=== PATIENT | female | born 1955 | race Caucasian/White ===

== ENCOUNTER 2020-07-26 08:22 | Observation (INO) | payer BC ==
--- NOTE | 2020-07-26 08:53 | ED ---
General Adult HPI - General Chief complaint: Dizziness Stated complaint: dizziness Time Seen by Provider: 07/26/20 08:38 Source: patient, EMS, RN notes reviewed, old records reviewed Mode of arrival: EMS Limitations: no limitations - History of Present Illness Initial comments: 64-year-old female presenting for evaluation of dizziness and blurred vision. Symptoms began approximately one hour prior to arrival. She states she had a similar episode to this one month ago which did resolve without specific treatment. This was while the patient was driving. Today she felt dizzy, noted the vision changes and had bilateral upper and lower lip numbness. There was no extremity numbness or weakness. No previous history of CVA or vision problems. She has hypothyroidism and is a current smoker, no other medical problems. - Related Data Home Medications Medication Instructions Recorded Confirmed Citalopram Hydrobromide [CeleXA] 40 mg PO DAILY 07/26/20 07/26/20 Levothyroxine Sodium 100 mcg PO DAILY 07/26/20 07/26/20 Allergies Allergy/AdvReac Type Severity Reaction Status Date / Time No Known Allergies Allergy Verified 07/26/20 09:37 Review of Systems ROS Statement: Those systems with pertinent positive or pertinent negative responses have been documented in the HPI. ROS Other: All systems not noted in ROS Statement are negative. Past Medical History Past Medical History: No Reported History History of Any Multi-Drug Resistant Organisms: None Reported Past Surgical History: Ablation Past Psychological History: Depression Smoking Status: Current every day smoker Past Alcohol Use History: Daily Past Drug Use History: None Reported General Exam Limitations: no limitations General appearance: alert, in no apparent distress Head exam: Present: atraumatic, normocephalic Eye exam: Present: other (Left eye has a medial nerve palsy) ENT exam: Present: normal exam Neck exam: Present: normal inspection. Absent: tenderness, meningismus Respiratory exam: Present: normal lung sounds bilaterally. Absent: respiratory distress, wheezes Cardiovascular Exam: Present: regular rate, normal rhythm GI/Abdominal exam: Present: soft. Absent: distended, tenderness Extremities exam: Present: normal inspection, normal capillary refill. Absent: calf tenderness Neurological exam: Present: alert, oriented X3, motor sensory deficit (Radial nerve palsy, NIH of 0). Absent: CN II-XII intact Psychiatric exam: Present: normal affect, normal mood Skin exam: Present: warm, dry, intact. Absent: cyanosis, diaphoretic Course Vital Signs 07/26/20 08:31 Temperature 97.9 F Pulse Rate 71 Respiratory 18 Rate Blood Pressure 146/94 O2 Sat by Pulse 96 Oximetry - Reevaluation(s) Reevaluation #1: 07/26/20 09:50 Symptoms improved, normal extraocular movements. Suspect TIA EKG Findings - EKG Comments: EKG Findings:: EKG: Normal sinus rhythm, rate of 69, DE interval 180, QRS duration 84, QTC 475, no ST segment elevation. Medical Decision Making - Medical Decision Making 64-year-old female with sudden onset dizziness and double vision. Initially the patient has a medial rectus palsy of the left eye with double vision on rightward gaze. She has no other focal findings. She has an NIH of 0, no ataxia. Normal strength throughout. Head CT negative for intracranial hemorrhage but does show chronic ischemic changes well as a CT angiography showing diminished flow in the posterior communicating arteries bilaterally. Her symptoms improve and resolve while in the emergency department. This is suggestive of a TIA. She's given aspirin and IV fluids. Her vital signs are stable. She will be admitted to her primary care physician Dr. Russo with destiney aj on consult. - Lab Data Result diagrams: 07/26/20 08:53 07/26/20 08:53 Lab Results 07/26/20 07/26/20 07/26/20 Range/Units 08:53 08:53 08:53 WBC 8.4 (3.8-10.6) k/uL RBC 4.61 (3.80-5.40) m/uL Hgb 16.7 H (11.4-16.0) gm/dL Hct 48.8 H (34.0-46.0) % MCV 105.8 H (80.0-100.0) fL MCH 36.3 H (25.0-35.0) pg MCHC 34.3 (31.0-37.0) g/dL RDW 13.0 (11.5-15.5) % Plt Count 237 (150-450) k/uL Neutrophils % 44 % Lymphocytes % 43 % Monocytes % 7 % Eosinophils % 3 % Basophils % 1 % Neutrophils # 3.7 (1.3-7.7) k/uL Lymphocytes # 3.6 (1.0-4.8) k/uL Monocytes # 0.6 (0-1.0) k/uL Eosinophils # 0.2 (0-0.7) k/uL Basophils # 0.1 (0-0.2) k/uL Macrocytosis Slight PT 10.2 (9.0-12.0) sec INR 1.0 (<1.2) APTT 23.2 (22.0-30.0) sec Sodium 137 (137-145) mmol/L Potassium 3.9 (3.5-5.1) mmol/L Chloride 105 (98-107) mmol/L Carbon Dioxide 25 (22-30) mmol/L Anion Gap 7 mmol/L BUN 10 (7-17) mg/dL Creatinine 0.97 (0.52-1.04) mg/dL Est GFR (CKD-EPI)AfAm 73 (>60 ml/min/1.73 sqM) Est GFR (CKD-EPI)NonAf 63 (>60 ml/min/1.73 sqM) Glucose 118 H (74-99) mg/dL Calcium 9.5 (8.4-10.2) mg/dL Total Bilirubin 0.7 (0.2-1.3) mg/dL AST 28 (14-36) U/L ALT 24 (4-34) U/L Alkaline Phosphatase 63 (38-126) U/L Troponin I (0.000-0.034) ng/mL Total Protein 7.4 (6.3-8.2) g/dL Albumin 4.3 (3.5-5.0) g/dL 07/26/20 Range/Units 08:53 WBC (3.8-10.6) k/uL RBC (3.80-5.40) m/uL Hgb (11.4-16.0) gm/dL Hct (34.0-46.0) % MCV (80.0-100.0) fL MCH (25.0-35.0) pg MCHC (31.0-37.0) g/dL RDW (11.5-15.5) % Plt Count (150-450) k/uL Neutrophils % % Lymphocytes % % Monocytes % % Eosinophils % % Basophils % % Neutrophils # (1.3-7.7) k/uL Lymphocytes # (1.0-4.8) k/uL Monocytes # (0-1.0) k/uL Eosinophils # (0-0.7) k/uL Basophils # (0-0.2) k/uL Macrocytosis PT (9.0-12.0) sec INR (<1.2) APTT (22.0-30.0) sec Sodium (137-145) mmol/L Potassium (3.5-5.1) mmol/L Chloride (98-107) mmol/L Carbon Dioxide (22-30) mmol/L Anion Gap mmol/L BUN (7-17) mg/dL Creatinine (0.52-1.04) mg/dL Est GFR (CKD-EPI)AfAm (>60 ml/min/1.73 sqM) Est GFR (CKD-EPI)NonAf (>60 ml/min/1.73 sqM) Glucose (74-99) mg/dL Calcium (8.4-10.2) mg/dL Total Bilirubin (0.2-1.3) mg/dL AST (14-36) U/L ALT (4-34) U/L Alkaline Phosphatase (38-126) U/L Troponin I <0.012 (0.000-0.034) ng/mL Total Protein (6.3-8.2) g/dL Albumin (3.5-5.0) g/dL Disposition Clinical Impression: Transient cerebral ischemia Disposition: ADMITTED IP TO THIS HOSP Condition: Stable Is patient prescribed a controlled substance at d/c from ED?: No Referrals: Gonsalo Russo MD [Primary Care Provider] - 1-2 days Decision to Admit Reason: Admit from EC Decision Date: 07/26/20 Decision Time: 10:03
[2020-07-26 09:01] LABS: Basophils # (A) 0.1 k/uL (0-0.2); Basophils % (A) 1 %; Eosinophils # (A) 0.2 k/uL (0-0.7); Eosinophils % (A) 3 %; HCT 48.8 % (34.0-46.0); HGB 16.7 gm/dL (11.4-16.0); Lymphocytes # (A) 3.6 k/uL (1.0-4.8); Lymphocytes % (A) 43 %; MCH 36.3 pg (25.0-35.0); MCHC 34.3 g/dL (31.0-37.0); MCV 105.8 fL (80.0-100.0); Macrocytosis Slight; Mean Platelet Volume 7.4; Monocytes # (A) 0.6 k/uL (0-1.0); Monocytes % (A) 7 %; Neutrophils # (A) 3.7 k/uL (1.3-7.7); Neutrophils % (A) 44 %; Platelet Count 237 k/uL (150-450); RBC 4.61 m/uL (3.80-5.40); WBC 8.4 k/uL (3.8-10.6)
[2020-07-26 09:10] LABS: Partial Thromboplastin Time 23.2 sec (22.0-30.0); Prothrombin Time 10.2 sec (9.0-12.0)
[2020-07-26 09:13] LABS: Albumin 4.3 g/dL (3.5-5.0); Calcium 9.5 mg/dL (8.4-10.2); Potassium 3.9 mmol/L (3.5-5.1); Total Bilirubin 0.7 mg/dL (0.2-1.3); Total Protein 7.4 g/dL (6.3-8.2)
--- NOTE | 2020-07-26 09:35 | XR ---
EXAMINATION TYPE: XR chest 2V DATE OF EXAM: 07/26/2020 COMPARISON: None HISTORY: 65-year-old female confusion, dizziness, altered mental status TECHNIQUE: AP and lateral views FINDINGS: Heart normal size. Mild elongation/ectasia of the thoracic aorta. Mild interstitial prominence has a chronic appearance. No consolidation or pleural effusion. Suspected tiny calcified granuloma at the p eripheral right base. IMPRESSION: Chronic appearing changes. No acute process seen.
--- NOTE | 2020-07-26 09:42 | CT ---
EXAMINATION TYPE: CT brain wo con DATE OF EXAM: 07/26/2020 HISTORY: dizziness, numb lips CT DLP: 1068 mGycm. Automated Exposure Control for Dose Reduction was Utilized. TECHNIQUE: CT scan of the head is performed without contrast. COMPARISON: None FINDINGS: There is no acute intracranial hemorrhage, midline shift, or mass effect identified. Mild volume loss . There or patchy white matter periventricular hypodensities. The ventricles, sulci, and cisterns are normal in size and configuration. No extra-axial fluid collection. Curvilinear calcification along the right dura following general con tour without bulging or mass effect (202:33) may be physiologic and likely not of clinical significan ce. Bones and extracranial soft tissues are intact. The globes are grossly symmetric. Visualized sinu ses and mastoid air cells are clear. IMPRESSION: 1. No acute intracranial hemorrhage, midline shift, or mass effect. 2. Patchy white matter hypodensities likely sequela of chronic microvascular ischemic change.
[2020-07-26] MEDS ORDERED: SODIUM CHLORIDE 0.9% 500 ML 500 ML IV ONE (09:47)
[2020-07-26] MEDS ORDERED: ASPIRIN 325 MG TAB PO STA (09:48)
--- NOTE | 2020-07-26 09:54 | CT ---
EXAMINATION TYPE: CT angio head neck DATE OF EXAM: 07/26/2020 HISTORY: dizziness, numb lips COMPARISON: CT brain 07/26/2020 CT DLP: 505 mGycm. Automated Exposure Control for Dose Reduction was Utilized. TECHNIQUE: CTA scan of the neck is performed with IV Contrast, patient injected with 65 mL of Isovue 370, axial images are obtained, coronal and sagittal reformatted images are reviewed. Three-D recons tructed images are created on an independent workstation and reviewed. Source images are reviewed. FINDINGS: Carotid/Vascular Structures: No evidence of significant atherosclerotic disease, stenosis, aneurysm, or dissection. Left-sided aortic arch with classic branching pattern. Cervical of Nails: Vertebral basilar system appears normal. Posterior cerebral vasculature is unrema rkable. Internal carotid arteries bifurcate normally into A1 and M1 segments. A2 segments are normal. The anterior communicating artery is patent. The bilateral posterior communicating arteries are eith er very diminutive or congenitally absent. Other: 2 mm pulmonary nodule of the right upper lobe. IMPRESSION: 1. No flow-limiting stenosis of the bilateral carotid bifurcations. 2. [place] of [place]ails demonstrates diminutive versus congenitally absent bilateral posterior commuting arteries. 3. 2 mm pulmonary nodule of the right upper lobe. Per Fleischner 2017 guidelines, if patient is low r isk no additional follow-up is needed. If patient is high risk, optional CT can be performed in one y ear.
--- NOTE | 2020-07-26 15:29 | P.CNNES ---
History of Present Illness Consult date: 07/26/20 Requesting physician: Devonte Salazar Reason for Consult: TIA History of Present Illness: Patient is a 64-year-old female otherwise very healthy, came to the hospital with transient episode of focal neurological symptoms. Patient states that at 7:15 AM she was sitting at the desk at work when she suddenly developed blurred vision, also had some double vision, numbness of the upper and lower lips bilaterally and then tingling in the fingers of both hands. She couldn't stand, felt very unsteady, although not weak. She denies any nausea vomiting or vertigo. She denied any slurred speech or facial droop observed by her coworkers. EMS was called and she was brought to the hospital. EMS flow sheet not available in the chart, although according to the patient on her vitals were normal. Her vitals on arrival showed blood pressure 146/94, pulse rate 71, temperature 97.9. Chest x-ray showed chronic appearing changes. No acute process. EKG shows normal sinus rhythm. Nonspecific ST and T-wave abnormality. CT head showed no acute and her process. Patchy white matter hypodensities likely sequela of chronic microvascular ischemic change. CTA of head and neck showed no flow-limiting stenosis of bilateral carotid bifurcations. 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 2 mm pulmonary nodule of the right upper lobe. This will be addressed by primary ph ysician. CBC with WBC 8.4 hemoglobin 16.7, platelets 237, PT/PTT normal, Chem-7 normal. Hepatic panel normal. Patient states that her symptoms resolved in about 3 to 3-1/2 hours. At present she feels perfectly fine. Patient denies hypertension or diabetes. Patient does not take any aspirin or other antiplatelet agent, does not take any HRT. No previous history of strokes or TIA. 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 Patient has smoked 1 pack per day from age 22, still smokes. She does not drink alcohol. Denies any family history of strokes. Review of Systems As above in HPI. All other review of systems unremarkable. Denies any chest pain shortness of breath wheezing or cough. Patient did have double vision and blurred vision but no loss of vision. Denies hoarseness, sore throat, dysphagia. Denies abdominal pain, nausea vomiting. Denies vertigo. No neck or back pain no trauma. Denies weight gain or weight loss, fever or chills, ear ache, anxiety or depression. Past Medical History Past Medical History: No Reported History History of Any Multi-Drug Resistant Organisms: None Reported Past Surgical History: Ablation Past Psychological History: Depression Smoking Status: Current every day smoker Past Alcohol Use History: Daily Past Drug Use History: None Reported Medications and Allergies Home Medications Medication Instructions Recorded Confirmed Type Citalopram Hydrobromide [CeleXA] 40 mg PO DAILY 07/26/20 07/26/20 History Levothyroxine Sodium 100 mcg PO DAILY 07/26/20 07/26/20 History Allergies Allergy/AdvReac Type Severity Reaction Status Date / Time No Known Allergies Allergy Verified 07/26/20 09:37 Physical Examination - Vital Signs Vital Signs: Vital Signs Temp Pulse Resp BP Pulse Ox 07/26/20 10:50 77 17 144/84 97 07/26/20 08:31 97.9 F 71 18 146/94 96 Intake and Output 07/25/20 07/26/20 07/26/20 22:59 06:59 14:59 Other: Weight 81.647 kg On examination patient is a late middle aged female, very pleasant, in no acute distress. Patient is alert awake oriented to time place and person speech and language functions are normal. Attention and concentration fund of knowledge is adequate. On cranial nerve examination pupils are round and reactive to light, visual johnson are full on confrontation, extraocular muscles are intact with no nystagmus. Face is symmetric, tongue protrudes the midline. Palatal elevation and sensation normal, hearing and shoulder shrug normal on muscle strength testing there is no pronator drift and the strength is normal in arms and legs distally and proximally. Reflexes are 2+ and plantars downgoing. Sensory touch is equal. No ataxia for [id number] or [id number] testing. Tone and bulk of muscles normal. There is no carotid bruit or murmur, S1 and S2 audible, chest is clear, abdomen is soft and nontender, chest is clear, peripheral pulses present. No edema. Results - Laboratory Findings CBC and BMP: 07/26/20 08:53 07/26/20 08:53 Abnormal Lab Findings: Abnormal Labs 07/26/20 07/26/20 08:53 08:53 Hgb 16.7 H Hct 48.8 H MCV 105.8 H MCH 36.3 H Glucose 118 H Assessment and Plan Assessment: * Transient ischemic attack, likely in the posterior circulation. Symptoms resolved in 3 to 3-1/2 hours. Current examination nonfocal. Exact cause uncertain. CTA of head and neck showed no significant atherosclerotic cerebrovascular disease, stenosis or occlusion. Rule out cardiac source. * Hypertension * Tobacco use Plan: * Patient has been started on aspirin 325 mg daily which will be continued. * We will check fasting a.m. lipid panel, hemoglobin A1c. * 2-D echo has been completed, results pending. * Telemetry monitoring so far showing normal sinus rhythm. Continue telemetry monitoring. * Strongly recommend complete tobacco cessation. * We will follow.
[2020-07-26] MEDS: SODIUM CHLORIDE 0.9% 1,000 ML IV SCH ×2 (20:15→20:55)
--- NOTE | 2020-07-26 22:18 | P.HPIM ---
History of Present Illness H&P Date: 07/26/20 Chief Complaint: CVA/TIA, severe abnormal gait, severe dizziness, hypothyroidism and depress 64-year-old female one of our office patient with past medical history of hypothyroidism, chronic depression who smoked for the last 30 years had mild lower back pain otherwise doing well according to patient she woke up around 7:15 AM not feeling well felt slight lightheadedness and dizziness ended up making it to work where she developed to have severe dizziness and the her vis ion specially in the left side become off the time not able to focus with her vision in not been able to see well developed to have worsening gait and balance was having lips numbness as well could not focus with her eyes especially the left side and when turned in certain direction she had worsening dizziness. Patient was rested by her coworker and ended up coming to the emergency department at [facility] where was seen and evaluated her physical exam was consistent with significant abnormality 1 trying to look left side and focus to the middle where her gaze and I'll motion were off betime especially the left side. Patient CT of the brain along with CTA showed no stenosis of the carotid artery teller of Nails demonstrated diminutive versus congenitally absent bilateral posterior commuting arteries and 2 mm pulmonary nodular notice in the right upper lobe patient was started on Plavix admit for neuro exam her brain CT originally did not show any major abnormality except patchy white matter hypodensity likely sequela from chronic microvascular ischemic change. Review of Systems CONSTITUTIONAL: Well-developed no acute respiratory distress. EYES: No icterus sclerae, no conjunctivitis, positive normal balance and gait with normal gaze with her eyes and abnormal vision.. EARS, NOSE, MOUTH, THROAT, and FACE: No sore throat, lymphadenopathy, carotid bruits or deformity. RESPIRATORY: No SOB cough or wheezes. CARDIOVASCULAR: No CP, Palpitation, PND, Orthopnea, or angina. GASTROINTESTINAL: No Abd pain, Nausea or vomiting, no Diarrhea or constipation, No GI Bleed, no distention or masses. GENITOURINARY: Negative for Hematuria or UTI, no kidney stones. INTEGUMENT/BREAST: Negative for any muscular injury with mild osteoarthritis.. HEMATOLOGIC/LYMPHATIC: Negative for bleed or purpura. MUSCULOSKELTAL: Negative for Myalgia or arthralgia. NEURLOGICAL: No LOC, Sz or syncope, positive blurred vision with slight abnormality with vision when she gaze to the left side abnormal balance and gait with slight numbness in the lips area with no droopy face... BEHAVIORAL/PSYCH: Negative. ENDOCRINE: Negative. Past Medical History Past Medical History: No Reported History History of Any Multi-Drug Resistant Organisms: None Reported Past Surgical History: Ablation Past Psychological History: Depression Smoking Status: Current every day smoker Past Alcohol Use History: Daily Past Drug Use History: None Reported - Past Family History Father Family Medical History: Myocardial Infarction ([place]) Additional Family Medical History / Comment(s): AML Medications and Allergies Home Medications Medication Instructions Recorded Confirmed Type Citalopram Hydrobromide [CeleXA] 40 mg PO DAILY 07/26/20 07/26/20 History Levothyroxine Sodium 100 mcg PO DAILY 07/26/20 07/26/20 History Allergies Allergy/AdvReac Type Severity Reaction Status Date / Time No Known Allergies Allergy Verified 07/26/20 09:37 Physical Exam Vitals: Vital Signs Temp Pulse Pulse Resp BP BP Pulse Ox 07/26/20 12:00 97.9 F 66 16 142/95 97 07/26/20 10:50 77 17 144/84 97 07/26/20 08:31 97.9 F 71 18 146/94 96 Intake and Output 07/25/20 07/26/20 07/26/20 22:59 06:59 14:59 Other: Weight 81.647 kg General Appearance: Alert, cooperative, no distress, appears stated age. Neck HEENT: Supple, no lymphadenopathy, no thyroid enlargement, no carotid bruits. Abnormal gaze and eye-movement. Lungs: Clear to auscultation without crackles or wheezes no rhonchi, no deformity. Chest Wall: Chest wall normal expansion with deep inspiration no tenderness and no deformity was found on exam, no costochondral pain or discomfort. Heart: Regular rate and rhythm, S1, S2 normal, no murmur, rub or gallop. Back: Symmetric, no curvature, ROM normal, no CVA tenderness. Abdomen: Soft, non-tender, bowel sounds active all four quadrants, no masses, no organomegaly. Extremities: Extremities normal, atraumatic, no cyanosis or edema. Pulses: 2+ and symmetric. Skin: Skin color, texture, tugor normal, no rashes or lesions. Neurologic: Alert oriented x3 cranial nerves II through XII shows slight abnormality with cranial nerve II and mostly in the left side, no motor deficit, no abnormal balance or gait. Results CBC & Chem 7: 07/26/20 08:53 07/26/20 08:53 Labs: Abnormal Lab Results - Last 24 Hours (Table) 07/26/20 07/26/20 Range/Units 08:53 08:53 Hgb 16.7 H (11.4-16.0) gm/dL Hct 48.8 H (34.0-46.0) % MCV 105.8 H (80.0-100.0) fL MCH 36.3 H (25.0-35.0) pg Glucose 118 H (74-99) mg/dL Thrombosis Risk Factor Assmnt - DVT/VTE Prophylaxis DVT/VTE Prophylaxis: Pharmacologic Prophylaxis ordered, Mechanical Prophylaxis o rdered Assessment and Plan Assessment: 1 TIA/CVA: With severe abnormality in cranial nerve II and in the left side patient will be admitted to the hospital MRI of the brain be done with continued see Niro watch for any abnormality consistent with A. fib or any arrhythmia. PT and OT will be started as well. 2 history of arrhythmia post-ablation therapy has been doing well off medication. 3 hypothyroidism: Continue patient on levothyroxine. 4 chronic depression: Still on Celexa. 5 chronic smoking 1 pack a day for the last 30 years patient be started nicotine patch. 6 history of chronic alcohol consumption. 7 [id number] cortical consumption and daily basis: Watch patient for any delirium tremor or withdrawal symptoms. 8 GI prophylaxis: Patient will be on Pepcid 20 mg daily. 9 DVT prophylaxis: Heparin subcutaneous and Venodyne boots. CODE STATUS: Full code. Admit patient to the hospital for 1 - 2 night stay.
[2020-07-27 02:09] LABS: Cholesterol 245 mg/dL (<200); HDL Cholesterol 42 mg/dL (40-60); LDL Cholesterol,Calculated 151 mg/dL (0-99); Triglycerides 260 mg/dL (<150)
[2020-07-27 04:03] LABS: Hemoglobin A1C 5.3 % (4.0-6.0)
[2020-07-27] MEDS: SODIUM CHLORIDE 0.9% 1,000 ML IV SCH (04:08)
[2020-07-27] MEDS ORDERED: LEVOTHYROXINE 100 MCG TAB PO SCH (06:30)
[2020-07-27 08:57] VITALS: RESP 20
[2020-07-27] MEDS ORDERED: CITALOPRAM HYDROBROMIDE 20 MG TAB PO SCH (09:00)
[2020-07-27] MEDS ORDERED: ATORVASTATIN 40 MG TAB PO SCH (09:00)
[2020-07-27] MEDS ORDERED: CLOPIDOGREL 75 MG TAB PO SCH (09:00)
[2020-07-27] MEDS ORDERED: ASPIRIN 81 MG PO SCH (09:00)
[2020-07-27] MEDS ORDERED: ASPIRIN 325 MG TAB PO SCH (09:00)
[2020-07-27] MEDS ORDERED: FAMOTIDINE 20 MG TAB PO SCH (09:00)
[2020-07-27] MEDS ORDERED: NICOTINE 14MG/24HR PATCH TRANSDERM SCH (09:00)
--- NOTE | 2020-07-27 09:38 | ECHOF ---
Referral Reason:Thrombus MEASUREMENTS -------- HEIGHT: 167.6 cm WEIGHT: 81.6 kg BP: RVIDd: 2.5 cm (< 3.3) IVSd: 1.0 cm (0.6 - 1.1) LVIDd: 4.3 cm (3.9 - 5.3) LVPWd: 1.1 cm (0.6 - 1.1) IVSs: 1.5 cm LVIDs: 2.2 cm LVPWs: 1.7 cm Ao Diam: 2.6 cm (2.0 - 3.7) AV Cusp: 1.7 cm (1.5 - 2.6) LA Diam: 2.8 cm (2.7 - 3.8) MV EXCURSION: 17.007 mm (> 18.000) MV EF SLOPE: 74 mm/s (70 - 150) EPSS: 0.5 cm MV E Jan: 0.76 m/s MV DecT: 229 ms MV A Jan: 0.88 m/s MV E/A Ratio: 0.86 RAP: 5.00 mmHg RVSP: 7.68 mmHg FINDINGS -------- This was a technically difficult study with suboptimal views. The left ventricular size is normal. Left ventricular wall thickness is normal. Overall left vent ricular systolic function is normal with, an EF between 55 - 60 %. The right ventricle is normal in size. The left atrial size is normal. The right atrial size is normal. Lumason used The aortic valve is trileaflet and appears structurally normal. The mitral valve is normal. There is trace mitral regurgitation. The tricuspid valve appears structurally normal. Trace tricuspid regurgitation present. Right melita tricular systolic pressure is normal at < 35 mmHg. There is no pulmonic regurgitation present. The aortic root size is normal. IVC Not well visulized. There is no pericardial effusion. CONCLUSIONS -------- 1. The left ventricular size is normal. 2. Left ventricular wall thickness is normal. 3. Overall left ventricular systolic function is normal with, an EF between 55 - 60 %. 4. There is trace mitral regurgitation. 5. Trace tricuspid regurgitation present. 6. There is no pericardial effusion. [employer] SAL[employer] ASSOCIATE: Vnadana Harper RDCS
--- NOTE | 2020-07-27 11:18 | MR ---
EXAMINATION TYPE: MR brain wo/w con DATE OF EXAM: 07/27/2020 COMPARISON: CT brain from yesterday. HISTORY: CVA suspected. Acute onset neuro deficit yesterday TECHNIQUE: Multiplanar, multisequence images of the brain and brainstem is performed without and with IV contras t, utilizing 7.5 mL intravenous Gadavist . FINDINGS: Diffusion weighted images demonstrate no evidence of a recent infarct or other diffusion ab normality. There is no worrisome extra-axial fluid collection. Diffuse ventricular and sulcal promin ence. Scattered areas of T2 hyperintensity throughout the superficial deep and periventricular white matter with more confluent appearance at the periventricular levels. Midline structures demonstrate somewhat empty sella morphology. The craniocervical junction appears within normal limits. Post contrast images demonstrate no abnormal enhancement. The dural venous sin uses appear patent. The visualized sinuses are clear and the globes are intact. Slight prominence of CSF surrounding optic nerves bilaterally. No suspicious fluid signal bilateral mastoid air cells. IMPRESSION: 1. No MRI evidence for a recent infarct. 2. Mild to moderate diffuse cerebral atrophy and moderate to advanced chronic small vessel ischemic c hanges. 3. Correlate clinically to exclude intracranial hypertension with empty sella morphology and common s ubarachnoid space surrounding the optic nerves. Overall no hydrocephalus noted.
[2020-07-27 12:04] VITALS: BP 118/77; PULSE 65; TEMP 97.9
--- NOTE | 2020-07-27 12:55 | P.DS ---
Providers Date of admission: 07/26/20 10:00 Expected date of discharge: 07/27/20 Attending physician: Gonsalo Russo Consults: 07/26/20 10:00 Consult Physician Routine Consulting Provider: Renu Pearson Consult Reason/Comments: TIA Do you want consulting provider notified?: Yes Primary care physician: Gonsalo Russo [facility] Course: 64-year-old female one of our office patient with past medical history of hypothyroidism, chronic depression who smoked for the last 30 years had mild lower back pain otherwise doing well according to patient she woke up around 7:15 AM not feeling well felt slight lightheadedness and dizziness ended up making it to work where she developed to have severe dizziness and the her vision specially in the left side become off the time not able to focus with her vision in not been able to see well developed to have worsening gait and balance was having lips numbness as well could not focus with her eyes especially the left side and when turned in certain direction she had worsening dizziness. Patient was rested by her coworker and ended up coming to the emergency department at [facility] where was seen and evaluated her physical exam was consistent with significant abnormality 1 trying to look left side and focus to the middle where her gaze and I'll motion were off betime especially the left side. 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 07/27: Patient has been seen by neurology for TIA with recommendations for full strength aspirin. MRI of the brain with and without contrast reveals no evidence of recent infarct. Mild to moderate diffuse cerebral atrophy and moderate to advanced all vessel ischemic changes. Correlate clinically to exclude intracranial sella subarachnoid space overall no hydrocephalus. Cranial nerves including cranial nerve normal today. Patient ambulated in the [place] with steady gait and balance. She has been screened by speech therapy with no deficits and skilled therapy not warranted. We'll plan to discharge patient on Plavix and aspirin. Patient is to be off work until Sunday. Patient is agreeable to nicotine patch. Plan is follow-up in the office on Sunday with Gabriella ABRAHAM. Patient will be discharged home today in stable condition. Discharge diagnoses: 1 TIA 2 history of arrhythmia post-ablation therapy 3 hypothyroidism 4 recurrent depression patient was counseled regarding smoking cessation. 5 chronic smoking 1 pack a day for the last 30 years 6 history of chronic alcohol consumption. 7 [id number] alcohol consumption on daily basis Discharge plan: Home Impression and plan of care have been directed as dictated by the signing physician. Tigist Chapin nurse practitioner acting as scribe for signing physician. Patient Condition at Discharge: Good Plan - Discharge Summary Discharge Rx Participant: No New Discharge Prescriptions: New Aspirin 81 mg PO DAILY chew Nicotine 14Mg/24Hr Patch [Habitrol] 1 patch TRANSDERM DAILY #30 patch Atorvastatin [Lipitor] 40 mg PO DAILY #30 tab Famotidine [Pepcid] 20 mg PO DAILY tab Clopidogrel [Plavix] 75 mg PO DAILY #30 tab Continue Citalopram Hydrobromide [CeleXA] 40 mg PO DAILY Levothyroxine Sodium 100 mcg PO DAILY Discharge Medication List Citalopram Hydrobromide [CeleXA] 40 mg PO DAILY 07/26/20 [History] Levothyroxine Sodium 100 mcg PO DAILY 07/26/20 [History] Aspirin 81 mg PO DAILY chew 07/27/20 [Rx] Atorvastatin [Lipitor] 40 mg PO DAILY #30 tab 07/27/20 [Rx] Clopidogrel [Plavix] 75 mg PO DAILY #30 tab 07/27/20 [Rx] Famotidine [Pepcid] 20 mg PO DAILY tab 07/27/20 [Rx] Nicotine 14Mg/24Hr Patch [Habitrol] 1 patch TRANSDERM DAILY #30 patch 07/27/20 [Rx] Follow up Appointment(s)/Referral(s): Gonsalo Russo MD [Primary Care Provider] - 1 Week (Sunday with Aubree Aguirre NP) Discharge Disposition: HOME SELF-CARE
--- NOTE | 2020-07-27 15:04 | P.PN ---
Subjective Progress Note Date: 07/27/20 Feels fine, offers no new complaints. All symptoms resolved. Objective - Vital Signs Vital signs: Vital Signs Temp 97.9 F 07/27/20 12:00 Pulse 65 07/27/20 12:00 Resp 20 07/27/20 12:00 BP 118/77 07/27/20 12:00 Pulse Ox 98 07/27/20 12:00 Intake & Output 07/26/20 07/27/20 07/27/20 18:59 06:59 18:59 Intake Total 840 10 240 Balance 840 10 240 Weight 81.647 kg 80.6 kg Intake: IV 10 0.9 10 Oral 840 240 Other: Voiding Method Toilet # Voids 1 1 1 - Exam Mental status, speech and language functions are normal. Cranial nerves normal. Muscle strength normal. No ataxia. Sensations normal. Cerebellar functions normal. - Labs CBC & Chem 7: 07/26/20 08:53 07/26/20 08:53 Labs: Abnormal Lab Results - Last 24 Hours (Table) 07/26/20 Range/Units 08:53 Triglycerides 260 H (<150) mg/dL Cholesterol 245 H (<200) mg/dL LDL Cholesterol, Calc 151 H (0-99) mg/dL Assessment and Plan Assessment: * Transient ischemic attack, likely in the posterior circulation. Symptoms resolved in 3 to 3-1/2 hours. Current examination nonfocal. Exact cause uncertain. CTA of head and neck showed no significant atherosclerotic cerebrovascular disease, stenosis or occlusion. * Hypertension * Hyperlipidemia * Tobacco use Plan: * Patient had an MRI of the brain, which revealed no acute process. Mild to moderate diffuse cerebral atrophy and moderate to advanced small vessel ischemic changes. It's revealed empty sella. Denies any problem with the vision on any signs of pseudotumor cerebri. Denies any visual issues. She does have occasional headache involving right frontal temporal region occurring about 2-3 times a week, lasting for one hour. Denies any symptoms of pseudotumor. Patient was recommended to see an major assembly inspector to rule out any pituitary dysfunction. * Continue dual antiplatelet medications for 3-4 weeks, then maintain on single agent aspirin 162 mg daily. Discussed with patient in detail. * Fasting a.m. lipid panel with total cholesterol 245, LDL 151, HDL 42 triglycerides 260. Recommend starting Lipitor 40 mg. Patient states that she will try dietary modification over the next 3 months and recheck her lipid panel. She was recommended that if it controls her lipids, she has to maintain that diet. Otherwise would recommend Lipitor 40 mg. She will follow up with her primary physician. * Hemoglobin A1c 5.3 normal. * 2-D echo revealed left-ventricular size and function are normal. EF is 55- 60%. Trace MR. No embolic source.. * Strongly recommend complete tobacco cessation. Patient started nicotine patch. * Neurologically clear for discharge with above recommendations.
== END 2020-07-27 14:59 | disposition home or self-care (01) ==
LOC: EC 08:22 → INTOOBSV 10:00 → 3SCARD 10:00 → UNDODISIN 07-27 14:59
PROVIDERS: ADMIT Internal Medicine Geriatric Medicine; ATTEND Internal Medicine Geriatric Medicine
DX: G45.9 Transient cerebral ischemic attack, unspecified (principal); F33.9 Major depressive disorder, recurrent, unspecified; E03.9 Hypothyroidism, unspecified; E78.5 Hyperlipidemia, unspecified; I10 Essential (primary) hypertension; R91.1 Solitary pulmonary nodule; M54.9 Dorsalgia, unspecified; F17.210 Nicotine dependence, cigarettes, uncomplicated; Z98.890 Other specified postprocedural states; Z79.890 Hormone replacement therapy; Z79.899 Other long term (current) drug therapy; Z82.49 Family history of ischemic heart disease and other diseases of the circulatory system; Z80.6 Family history of leukemia
CPT/HCPCS: 99285; 36415; 93005; 93306; 97165; 80061; 80053; 84484; 85025; 85610; 85730; 83036; 71046; 70496; 70450; 70498; 70553; G0378 ×2; S4990; A9585; Q9950; Q9967; 96360

== ENCOUNTER 2020-08-13 11:50 | Emergency (ER) | payer BC ==
[2020-08-13 11:59] VITALS: RESP 18; TEMP 98.3
--- NOTE | 2020-08-13 12:35 | ED ---
Neuro HPI - General Chief Complaint: Neuro Symptoms/Deficit Stated Complaint: Stroke Symptoms Time Seen by Provider: 08/13/20 12:22 Source: patient, RN notes reviewed, old records reviewed Mode of arrival: EMS Limitations: no limitations - History of Present Illness Is the patient presenting with stroke symptoms?: No -: hour(s) Initial Comments: This is a 64-year-old female presenting for numbness and tingling on right leg. Weakness right leg all symptoms resolved. Patient is admission about a week ago were all the symptoms were same and also present. She had multiple evaluations including CT CTA MRI etc. seen by neurologist. Patient has been taking medications as prescribed including Plavix and aspirin is currently a symptomatically feels well Location: other (Asymptomatic) History of same: Yes Place: home Severity: mild (Symptoms are now resolved) Quality: weak, numb, tingling, other (Both upper and lower lower extremity) Improves With: time Worsens With: none On Anticoagulants: Yes Context: gradual onset Associated Symptoms: denies other symptoms Treatments Prior to Arrival: Aspirin - Related Data Home Medications: Home Medications Medication Instructions Recorded Confirmed Citalopram Hydrobromide [CeleXA] 40 mg PO DAILY 07/26/20 07/26/20 Levothyroxine Sodium 100 mcg PO DAILY 07/26/20 07/26/20 Previous Rx's Medication Instructions Recorded Aspirin 81 mg PO DAILY chew 07/27/20 Atorvastatin [Lipitor] 40 mg PO DAILY #30 tab 07/27/20 Clopidogrel [Plavix] 75 mg PO DAILY #30 tab 07/27/20 Famotidine [Pepcid] 20 mg PO DAILY tab 07/27/20 Nicotine 14Mg/24Hr Patch [Habitrol] 1 patch TRANSDERM DAILY #30 patch 07/27/20 Allergies/Adverse Reactions: Allergies Allergy/AdvReac Type Severity Reaction Status Date / Time No Known Allergies Allergy Verified 08/13/20 11:59 Review of Systems ROS Statement: Those systems with pertinent positive or pertinent negative responses have been documented in the HPI. ROS Other: All systems not noted in ROS Statement are negative. General Exam Limitations: no limitations General appearance: alert, in no apparent distress Head exam: Present: atraumatic, normocephalic, normal inspection Eye exam: Present: normal appearance, PERRL, EOMI. Absent: scleral icterus, conjunctival injection, periorbital swelling ENT exam: Present: normal exam, mucous membranes moist Neck exam: Present: normal inspection. Absent: tenderness, meningismus, lymphadenopathy Respiratory exam: Present: normal lung sounds bilaterally. Absent: respiratory distress, wheezes, rales, rhonchi, stridor Cardiovascular Exam: Present: regular rate, normal rhythm, normal heart sounds. Absent: systolic murmur, diastolic murmur, rubs, gallop, clicks GI/Abdominal exam: Present: soft, normal bowel sounds. Absent: distended, tenderness, guarding, rebound, rigid Extremities exam: Present: normal inspection, full ROM, normal capillary refill. Absent: tenderness, pedal edema, joint swelling, calf tenderness Back exam: Present: normal inspection Neurological exam: Present: alert, oriented X3, CN II-XII intact Psychiatric exam: Present: normal affect, normal mood Skin exam: Present: warm, dry, intact, normal color. Absent: rash Stroke MDM - NIH Stroke Scale 1a. Level of Consciousness: (0) alert 1b. LOC Questions: (0) answers correctly 1c. LOC Commands: (0) performs tasks correctly 2. Best Gaze: (0) normal 3. Visual: (0) no visual loss 4. Facial Palsy: (0) normal symmetrical movement 5a. Motor Arm Left: (0) no drift 5b. Motor Arm Right: (0) no drift 6a. Motor Leg Left: (0) no drift 6b. Motor Leg Right: (0) no drift 7. Limb Ataxia: (0) absent 8. Sensory: (0) normal 9. Best Language: (0) no aphasia 10. Dysarthria: (0) normal 11. Extinction/Inattention: (0) no abnormality - Medical Decision Making 64 female spoke with her at length, patient is found to have has no significant findings here in the ER, explain patient prior findings and feels good for discharge home Past Medical History Past Medical History: No Reported History History of Any Multi-Drug Resistant Organisms: None Reported Past Surgical History: Ablation Additional Past Surgical History / Comment(s): ablation for Svt 2004. Past Psychological History: Depression Smoking Status: Current every day smoker Past Alcohol Use History: Daily Past Drug Use History: None Reported - Past Family History Father Family Medical History: Myocardial Infarction ([place]) Additional Family Medical History / Comment(s): AML Course Vital Signs 11/06/20 11/06/20 11/06/20 11:57 12:00 13:10 Temperature 98.3 F 98.3 F 98.3 F Pulse Rate 80 77 73 Respiratory 18 18 18 Rate Blood Pressure 148/88 148/88 118/71 O2 Sat by Pulse 100 100 100 Oximetry - Reevaluation(s) Reevaluation #1: medical records reviewed Patient remains asymptomatic here in the ER Spoke patient regarding prior admission, she is happy with those results of refuses further testing A she can be discharged home Disposition Clinical Impression: Transient cerebral ischemia Disposition: HOME SELF-CARE Condition: Good Instructions (If sedation given, give patient instructions): Transient Ischemic Attack (ED) Is patient prescribed a controlled substance at d/c from ED?: No Referrals: Gonsalo Russo MD [Primary Care Provider] - 1-2 days
[2020-08-13 13:20] VITALS: BP 118/71; PULSE 73
== END 2020-08-13 13:23 | disposition home or self-care (01) ==
LOC: EC 11:50
DX: G45.9 Transient cerebral ischemic attack, unspecified (principal); F32.9 Major depressive disorder, single episode, unspecified; F17.200 Nicotine dependence, unspecified, uncomplicated; Z79.899 Other long term (current) drug therapy; Z82.49 Family history of ischemic heart disease and other diseases of the circulatory system
CPT/HCPCS: 93005; 99285

== ENCOUNTER → 2022-10-16 | Outpatient (CLI) | payer BC ==
[~2022-10-16] MED LIST: REGADENOSON 0.4 MG/5 ML SYRINGE IV PRN
--- NOTE | 2022-10-16 09:31 | US ---
EXAMINATION TYPE: US carotid duplex BILAT DATE OF EXAM: 10/16/2022 COMPARISON: NONE CLINICAL HISTORY: I25.119, I65.23. TECHNIQUE: Carotid duplex ultrasound examination. Indirect Doppler criteria was utilized. FINDINGS: EXAM MEASUREMENTS: RIGHT: Peak Systolic Velocity (PSV) cm/sec ----- Right CCA: 67.7 ----- Right ICA: 73.8 ----- Right ECA: 59.0 ICA/CCA ratio: 1.1 RIGHT: End Diastole cm/sec ----- Right CCA: 32.8 ----- Right ICA: 39.5 ----- Right ECA: 23.1 LEFT: Peak Systolic Velocity (PSV) cm/sec ----- Left CCA: 62.5 ----- Left ICA: 78.7 ----- Left ECA: 69.6 ICA/CCA ratio: 1.3 LEFT: End Diastole cm/sec ----- Left CCA: 28.4 ----- Left ICA: 36.2 ----- Left ECA: 22.3 VERTEBRALS (direction of flow): Right Vertebral: Antegrade Left Vertebral: Antegrade Rhythm: Normal SAUSAGE MEAT TRIMMER NOTES: Mild atherosclerotic changes with no significant velocity increases. IMPRESSION: Less than 50% stenosis of the bilateral carotid bifurcations. Criteria for Assigning % of Stenosis / Diameter reduction (Estimation based on the indirect measurements of the internal carotid artery velocities (ICA PSV). 1. Normal (no stenosis)=ICA PSV < 125 cm/s: ratio < 2.0: ICA EDV<40 cm/s. 2. Less than 50% stenosis=ICA PSV < 125 cm/s: ratio < 2.0: ICA EDV<40 cm/s. 3. 50 to 69% stenosis=ICA PSV of 125 to 230 cm/s: ration 2.0 ? 4.0: ICA EDV 40-100 cm/s. 4. Greater than 70% stenosis to near occlusion= ICA PSV > 230 cm/s: ratio > 4.0: ICA EDV > 100 cm/s. 5. Near occlusion= ICA PSV velocities may be low or undetectable: variable ratio and ICA EDV. 6. Total occlusion=unable to detect flow.
--- NOTE | 2022-10-16 10:58 | CA ---
Lexiscan Nuclear Stress Test Report Name: Aracelis Cm Exam Date: 10/16/2022 09:45 Exam Location: [facility] Ht (in): 66 Wt (lb): 170 BSA: 1.87 Ordering Phys: Sarah Nunez MD Referring Phys: SHARIFA, Technologist: Jerry Trujillo Age: 66 Gender: F : 1955 Procedure CPT: Indications: I25.119, I65.23 ICD-10 Codes: Patient History: Medications: Meds past 24 hrs: Pretest Chest Pain: STRESS TEST Lexiscan Protocol Exercise Duration (min:sec): 02:[address] Depressions (mm): Angina Score: Uriarte Score: Resting HR (bpm): 65 Peak HR (bpm): 94 Resting BP (mmHg): 137 / 97 Peak BP (mmHg): 145 / 96 MPHR: 156 Target HR: 133 % MPHR: 60 METS: 1.0 Total Dose: Peak Dose: Atropine: Double Product: 97603 BP Response: Stress Termination: PROTOCOL COMPLETE Stress Symptoms: CHEST PRESSURE, SHORT OF BREATH Stress Summary: ECG ANALYSIS Resting ECG: Stress ECG: CONCLUSIONS Baseline EKG revealed normal sinus rhythm with very minor nonspecific ST abnormality. With Lexiscan administration heart rate went up from 65-86 bpm and blood pressure changed from 137/97-132/92. Patient had transient chest pressure and shortness of breath. By EKG criteria this is a inconclusive Lexiscan stress test with minor resting EKG changes. The nuclear scan results which are more pertinent will be reported by the radiologist Dr. Tri Francisco MD (Electronically Signed) Final Date: 16 October 2022 10:57
--- NOTE | 2022-10-16 11:12 | NM ---
EXAMINATION TYPE: NM stress lexiscan cardiolite DATE OF EXAM: 10/16/2022 COMPARISON: NONE HISTORY: Chest pain TECHNIQUE: After the intravenous administration of 9.5 mCi Tc 99m Sestamibi - Cardiolite resting SPE CT images acquired 45 minutes post injection. The patient received 0.4mg Lexiscan, 24.3 mCi Tc 99m Sestamibi - Stress images obtained [address] injection FINDINGS: Review of stress and rest SPECT images demonstrates no distinct perfusion abnormality. Gated analysi s shows normal wall motion with an estimated left ventricular ejection fraction of 53 %. IMPRESSION: No scintigraphic evidence for reversible ischemia.
== END | disposition home or self-care (01) ==
LOC: RADNMMAIN 08:04
PROVIDERS: ATTEND Internal Medicine
DX: I25.119 Atherosclerotic heart disease of native coronary artery with unspecified angina pectoris (principal); I65.23 Occlusion and stenosis of bilateral carotid arteries; R06.02 Shortness of breath; R07.89 Other chest pain
CPT/HCPCS: 93017; 93880; 78452; A9500; J2785

== ENCOUNTER → 2023-04-25 | Outpatient (CLI) | payer MEDICARE ==
--- NOTE | 2023-04-25 10:14 | CTL ---
EXAMINATION TYPE: CT Low Dose Lung DATE OF EXAM ORDERED: 04/25/2023 HISTORY: 67-year-old female R13.10, dysphagia. Z12.2; F17.210. Current smoker with 40 pack-year histo ry. Lung cancer screening CT DLP: 109.[address] CTDI: 3.3 mGy Automated exposure control for dose reduction was used. SCREENING VISIT: Baseline COMPARISON: None TECHNIQUE: Low dose computed tomography scan was performed through the chest with coronal and sagitta l reconstructions. CT DIAGNOSTIC QUALITY: Satisfactory FINDINGS: Heart normal size without pericardial effusion. Aorta normal caliber with minimal atherosclerotic arch calcifications and conventional arch vessel br anching anatomy. No thoracic lymphadenopathy by CT size criteria. No thoracic lymphadenopathy by CT size criteria. Mild centrilobular emphysema. 3 mm anterior right upper lobe pulmonary nodule, axial image 52. 4 mm lateral right upper lobe pulmonary nodule, axial image 64. 3 mm peripheral right upper lobe pulmonary nodule, axial image 89. 3 mm lateral right upper lobe pulmonary nodule, axial image 106. 4 mm left mid lung pulmonary nodule, axial image 116. 3 mm pulmonary nodules lateral left midlung, axial image 109. 4 mm lateral left upper lobe pulmonary nodule, axial image 77. 4 mm left apical pulmonary nodule, axial image 24. No consolidation or pleural effusion. Nonspecific 1.4 cm hypodense lesion left hepatic dome, probably a small cyst. Bones: No osseous destructive process. IMPRESSION: 1. LungRADS 2, benign. Scattered 4 mm and smaller pulmonary nodules on baseline screening. 2. COPD with mild emphysema. Recommend smoking cessation. 3. Nonspecific 1.4 cm hypodense lesion of the left hepatic dome, probably a cyst. Recommend in 3 shahzad h follow-up ultrasound to reassess. If unable to visualize at that time by ultrasound, follow-up CT c an be considered. CT LUNG RAD AND CT CHEST RECOMMENDATION: Lung-Rad 2 Benign Appearance or Behavior: Continue annual sc reening with LDCT in 12 months. S Modifier (other clinically significant findings): S, refer to recommendation for left hepatic dome lesion follow-up above.
== END | disposition home or self-care (01) ==
LOC: RADCTMAIN 08:03
PROVIDERS: ATTEND Internal Medicine
DX: Z12.2 Encounter for screening for malignant neoplasm of respiratory organs (principal); J43.2 Centrilobular emphysema; K76.9 Liver disease, unspecified; R91.8 Other nonspecific abnormal finding of lung field; F17.210 Nicotine dependence, cigarettes, uncomplicated; R13.10 Dysphagia, unspecified
CPT/HCPCS: 71271

== ENCOUNTER → 2024-05-13 | Outpatient (CLI) | payer MEDICARE ==
--- NOTE | 2024-06-05 16:35 | CTL ---
Site ID [facility] Aracelis Senior ID [id number] Age/Gender: 68Y, N/A Order # N/A Procedure CT LOW DOSE LUNG CANCER SCREENING Date 05/13/2024 8:42:00 AM EXAMINATION TYPE: CT Low Dose Lung DATE OF EXAM ORDERED: 05/29/2024 HISTORY: History of nicotine dependence, 40 pack-year history, current smoker. Lung cancer screening CT DLP: 80.[address] CTDI: 2.30 mGy Automated exposure control for dose reduction was used. SCREENING VISIT: First screening visit COMPARISON: None TECHNIQUE: Low dose computed tomography scan was performed through the chest at 1 mm thick sections a nd reconstructed images in multiple planes at 1 mm and [address] DIAGNOSTIC QUALITY: Satisfactory FINDINGS: Nodules: Pleural-based 3.3 mm left upper lobe groundglass pulmonary nodule (series 6, image 20). Right lower lobe solid 7.3 mm pulmonary nodule (series 4, image 176). 3.3 mm nodule along the left major fissure most consistent with intrafissural lymph node. LUNGS: COPD: Severity: Minimal Fibrosis: Severity: None Lymph nodes: None Other findings: None RIGHT PLEURAL SPACE: Effusion: None Calcification: None Thickening: None Pneumothorax: None LEFT PLEURAL SPACE: Effusion: None Calcification: None Thickening: None Pneumothorax: None HEART: Heart Size: Normal Coronary Calcification: None Pericardial Effusion: None OTHER FINDINGS: Upper abdomen: None Bony thorax: None Supraclavicular region: None Other: None IMPRESSION: Couple of pulmonary nodules with largest measuring up to 7.[address] LUNG RAD AND CT CHEST RECOMMENDATION: Lung-Rad 3 Probably Benign: 6 month follow-up LDCT. S Modifier (other clinically significant findings): None
== END | disposition home or self-care (01) ==
LOC: RADCTMAIN 08:43
PROVIDERS: ATTEND Internal Medicine
DX: Z12.2 Encounter for screening for malignant neoplasm of respiratory organs (principal); F17.210 Nicotine dependence, cigarettes, uncomplicated; R91.8 Other nonspecific abnormal finding of lung field
CPT/HCPCS: 71271